=== PATIENT | female | born 1955 | race Caucasian/White ===

== ENCOUNTER 2022-02-01 11:10 | Emergency (ER) | payer OTHER, SELFPAY ==
[2022-02-01 11:17] VITALS: BP 142/85; PULSE 58; RESP 16; TEMP 36.8; O2SAT 99; BMI 20.8
--- NOTE | 2022-02-01 11:37 | CRLHL7_ITS ---
For Patients: As a result of the Cures Act, medical imaging exams and procedure reports are released immediately into your electronic medical record. You may view this report before your referring provider. If you have questions, please contact your health care provider. Indication: Pain. History of degenerative disc disease. Technique: Three views of the lumbosacral spine were acquired. Comparison: None Findings: Resolution is significantly limited due to marked demineralization and overlying fecal material. There are degenerative changes diffusely involving the disc spaces and facet joints. There are atherosclerotic vascular calcifications. Within the limitations of the study, I see no acute fracture or destructive process. No fernando malalignment. Impression: Limited study. Demineralization and degenerative change. No definite acute focal finding. Please review the comment. Dictated by Darion Obregon MD @ 02/01/2022 12:45:55 PM (Electronically Signed)
--- NOTE | 2022-02-01 11:38 | ED.BACK ---
HPI - Back Pain/Injury General Chief Complaint: Back Injury/Pain Stated Complaint: Injured back Time Seen by Provider: 02/01/22 11:20 History of Present Illness HPI Narrative: This 66-year-old female comes in with low back pain that began this morning. She states that she was lifting a bag of water softener salt and had sudden onset of pain when doing this. She heard or felt a snap at the onset of this pain. She reports pain along her low back at about her belt line. She has been ambulatory since then prior to this she was in good health. She states that pain is worse with any kind of movement. Related Data Home Medications Medication Instructions Recorded Confirmed bupropion HCl 150 mg 24 hr tablet, mg PO 02/01/22 extended release bupropion HCl 300 mg 24 hr tablet, mg PO 02/01/22 extended release gabapentin 100 mg capsule mg 02/01/22 sertraline 100 mg tablet mg 02/01/22 trazodone 50 mg tablet mg 02/01/22 Allergies Allergy/AdvReac Type Severity Reaction Status Date / Time No Known Drug Allergies Allergy Verified 02/01/22 11:21 Review of Systems Status of ROS: Reports: 10 or more systems reviewed and unremarkable except as noted in History and below Narrative: Constitutional: No fevers, no weight gain or loss. Eyes: No discharge. No vision changes. HENT: No congestion, no sore throat, no ear pain. Cardiovascular: No chest pain, no palpitations. Respiratory: No shortness of breath, no wheezes, no cough. Gastrointestinal: No abdominal pain, no vomiting, no diarrhea. Genitourinary: No dysuria, no hematuria. Musculoskeletal: Normal range of motion. Skin: No rashes, no pruritis. Neurological: No dizziness, weakness, sensory change, speech change. No pain radiating down either leg. Endo/Heme/Allergies: No bruising or bleeding. No polydipsia. Pysch: no suicidality, no anxiety, no insomnia. All other systems reviewed and are negative. [facility] Surgical History (Updated 02/01/22 @ 11:22 by Angelique Morin RN) History of appendectomy History of cholecystectomy Social History Smoking Status: Never smoker Do you use any of these nicotine containing products: None Second hand tobacco smoke exposure: No How often do you have a drink containing alcohol: 2-4 times a month How many standard drinks containing alcohol do you have on a typical day: 1 or 2 How often do you have six or more drinks on one occasion: Less than monthly AUDIT-C Alcohol total score: 3 Non-prescribed substance use: denies use service: No Exam Narrative: Exam Narrative: Constitutional: Well-developed, well-nourished, no acute distress. HEENT: Normocephalic, atraumatic. Neck: Normal range of motion. Nontender. Supple. Heart: Regular. No murmurs. Normal rate. Intact distal pulses. Lungs: Clear to auscultation. No chest discomfort. No wheezes, rhonchi, or rales. Abdomen: Normal bowel sounds. Nontender. No rebound tenderness. Genitalia: Deferred. Back: Pain is located in the low back across the belt line area. Pain is worse with any kind of movement. No radiating pain down either leg. Extremities: Normal range of motion. No injury. Skin: Intact. No rash. Warm. No erythema or pallor. Neurologic: No altered sensation. No weakness. Alert and oriented. Psychiatric: No suicidality. No anxiety or depression. No insomnia. Nursing notes and vitals signs are reviewed. Const: Vital Signs, click to edit/add: Vital Signs - 24 hr 02/01/22 11:17 Temperature 98.2 F Pulse Rate [Left P ulse Oximeter] 58 L Respiratory Rate 16 Blood Pressure [Le ft Upper Arm] 142/85 H Pulse Oximetry 99 Oxygen Delivery Me thod Room Air Course Vital Signs Vital signs: Initial Vital Signs Temperature 98.2 F 02/01/22 11:17 Temperature Source Temporal Artery Scan 02/01/22 11:17 Pulse Rate 58 L 02/01/22 11:17 Pulse Rhythm 02/01/22 11:17 Pulse Strength 3+ Normal 02/01/22 11:17 Respiratory Rate 16 02/01/22 11:17 Blood Pressure 142/85 H 02/01/22 11:17 Blood Pressure Mean 104 02/01/22 11:17 Blood Pressure Position Sitting 02/01/22 11:17 Pulse Oximetry 99 02/01/22 11:17 Oxygen Delivery Method 02/01/22 11:17 Vital Signs Temperature 98.2 F 02/01/22 11:17 Pulse Rate 58 L 02/01/22 11:17 Respiratory Rate 16 02/01/22 11:17 Blood Pressure 142/85 H 02/01/22 11:17 Pulse Oximetry 99 02/01/22 11:17 Oxygen Delivery Method 02/01/22 11:17 Temperature 98.2 F 02/01/22 11:17 Pulse Rate 58 L 02/01/22 11:17 Respiratory Rate 16 02/01/22 11:17 Blood Pressure 142/85 H 02/01/22 11:17 Pulse Oximetry 99 02/01/22 11:17 Oxygen Delivery Method 02/01/22 11:17 MDM - Back Pain/Injury MDM Narrative Medical decision making narrative: This patient comes in with onset of back pain when lifting a 40 lb bag of water softener salt. She had an x-ray done of her lumbar spine which showed no sign of compression fracture or other abnormality. The results are somewhat limited because of a fair amount of stool in mostly gas in the bowel. The patient received an intramuscular injection of morphine 5 mg in after this began to have some nausea. She did receive an oral dose of Zofran and later an IV dose with some fluids. She is feeling significantly better at this time. She is okay to return home. Prescriptions are provided for Toradol and Flexeril. Imaging Data XR Lumbar Spine: Radiologist's impression: Resolution is significantly limited due to marked demineralization and overlying fecal material. There are degenerative changes diffusely involving the disc spaces and facet joints. There are atherosclerotic vascular calcifications. Within the limitations of the study, I see no acute fracture or destructive process. No fernando malalignment. Discharge Plan Discharge Clinical Impression: Strain of lumbar region Patient Disposition: Home, Self-Care Condition: Stable Additional Instructions: Take medication as needed and indicated. Increase activity as tolerated. Follow up with MD or return if worsening. Prescriptions: No Action trazodone 50 mg tablet Label Comments: TAKE 2 TO 3 TABLETS BY MOUTH AT BEDTIME NEEDED sertraline 100 mg tablet gabapentin 100 mg capsule bupropion HCl 300 mg tablet extended release 24 hr PO bupropion HCl 150 mg tablet extended release 24 hr PO Label Comments: TAKE ONE TABLET BY MOUTH ALONG WITH 1-300MG TABLET (TOTAL DOSE = 450MG/DAY) Follow Up/Referrals: Toshia Matthews MD [Primary Care Provider] - Stand Alone Forms: Seer Info Instructions
[2022-02-01] MEDS: MORPHINE 10 MG/ML inj 5 MG IM (11:43)
[2022-02-01] MEDS: ONDANSETRON ODT 4 MG TAB PO (12:38)
[2022-02-01 13:00] VITALS: BP 161/89
[2022-02-01] MEDS: 0.9 % SODIUM CHLORIDE 500 ML 500 ML IV (13:13)
[2022-02-01] MEDS: ONDANSETRON 2 MG/ML inj 4 MG IVP (13:13)
== END 2022-02-01 14:08 | disposition home or self-care (01) ==
PROVIDERS: Emergency Provider Emergency Medicine Emergency Medical Services; PCP Family Medicine
DX: S39.012A Strain of muscle, fascia and tendon of lower back, initial encounter (principal); X50.0XXA Overexertion from strenuous movement or load, initial encounter; Y93.89 Activity, other specified; Y92.018 Other place in single-family (private) house as the place of occurrence of the external cause; Y99.8 Other external cause status
CPT/HCPCS: 72100; 96361; 96372; 96374; 99284; A9270; J2270; J2405; J7120